=== PATIENT | male | born 1955 | race Caucasian/White ===

== ENCOUNTER → 2020-03-20 15:44 | Outpatient (BNVA) | payer MEDICARE, MEDICAID, SELFPAY | PROVIDERS: Family Provider Internal Medicine; PCP Internal Medicine; Referring Provider Internal Medicine; Visit Provider Dermatology | DX: L13.9 Bullous disorder, unspecified (principal); B35.3 Tinea pedis; L30.8 Other specified dermatitis | CPT/HCPCS: 99202; 99203 ==

== ENCOUNTER → 2020-04-03 14:03 | Outpatient (BNVA) | payer MEDICARE, MEDICAID, SELFPAY | PROVIDERS: Family Provider Internal Medicine; PCP Internal Medicine; Visit Provider Dermatology | DX: B35.3 Tinea pedis (principal); L13.9 Bullous disorder, unspecified | CPT/HCPCS: 11104; 11105; 87070; 87077; 87186; 88304; 88305; 88312; 88346; 88350; 99213 ==

== ENCOUNTER → 2020-04-17 14:56 | Outpatient (BNVA) | payer MEDICARE, MEDICAID, SELFPAY | PROVIDERS: Family Provider Internal Medicine; PCP Internal Medicine; Visit Provider Dermatology | DX: L13.9 Bullous disorder, unspecified (principal); L82.1 Other seborrheic keratosis; B35.3 Tinea pedis; L25.5 Unspecified contact dermatitis due to plants, except food | CPT/HCPCS: 99213 ==

== ENCOUNTER → 2020-05-16 13:32 | Outpatient (BNVA) | payer MEDICARE, MEDICAID, SELFPAY | PROVIDERS: Family Provider Internal Medicine; PCP Internal Medicine; Visit Provider Dermatology | DX: L13.9 Bullous disorder, unspecified (principal); R60.0 Localized edema | CPT/HCPCS: 99213 ==

== ENCOUNTER 2020-06-12 12:34 | Outpatient (CLI) | payer MEDICARE, MEDICAID, SELFPAY ==
--- NOTE | 2020-06-12 12:45 | US_ITS ---
WS: [id number] RENAL ULTRASOUND HISTORY: neurogenic bladder COMPARISON: 05/26/2017 and 01/08/2015 TECHNIQUE: 2-D and color Doppler imaging of the kidney submitted. Right kidney: 8.4 cm x 4.4 cm x 4.4 cm. RIGHT kidney is poorly visualized. Marked atrophy of the superior renal pole. There is a large comple x cyst associated with the mid and lower kidney measuring 5.0 x 4.7 x 4.1 cm. This cyst has been prev iously described and is not as well visualized today. No hydronephrosis is evident. Increased echogen icity throughout the visualized normal parenchyma. Left kidney: 9.1 cm x 5.2 cm x 4.7 cm. Mild diffuse increased echogenicity. No hydronephrosis. Cortical cyst upper pole measures 2.4 x 3.0 x 2.5 cm. Aorta: Poorly visualized aorta. Urinary Bladder: Nondistended urinary bladder. Prostate gland is enlarged. There is mild bladder wall thickening which may be due to underdistention or outlet obstruction. US/US renal BI* [id number] IMPRESSION: 1. Large mildly complex RIGHT renal cyst is been present on multiple prior exa ms. 2. No hydronephrosis. 3. Moderate to severe RIGHT renal atrophy. 4. Chronic medical renal disease.
== END 2020-06-12 12:35 | disposition home or self-care (01) ==
LOC: US 12:35
PROVIDERS: PCP Internal Medicine; Visit Provider Urology
DX: N31.9 Neuromuscular dysfunction of bladder, unspecified (principal); N28.1 Cyst of kidney, acquired; N26.1 Atrophy of kidney (terminal); N18.9 Chronic kidney disease, unspecified
CPT/HCPCS: 76770

== ENCOUNTER 2020-12-31 06:00 | Outpatient (RCR) | payer MEDICARE, MEDICAID, SELFPAY | END 2021-01-27 23:59 | disposition home or self-care (01) | LOC: AOT 06:00 | PROVIDERS: PCP Internal Medicine; Referring Provider Internal Medicine; Visit Provider Internal Medicine | DX: Z46.89 Encounter for fitting and adjustment of other specified devices (principal); G61.0 Guillain-Barre syndrome | CPT/HCPCS: 97166; 97530 ==

== ENCOUNTER 2021-07-01 13:55 | Outpatient (CLI) | payer MEDICARE, MEDICAID, SELFPAY ==
--- NOTE | 2021-07-01 13:30 | US_ITS ---
WS: [id number] ULTRASOUND RENAL TECHNIQUE: Ultrasound examination of both kidneys. CLINICAL INFORMATION: NEUROGENIC BLADDER COMPARISON: June 12, 2020 ultrasound FINDINGS: RIGHT: Complex mid right renal cyst measuring 5.7 x 4.5 x 5.4 cm is stable. Right kidney is normal in size and appearance. Echogenicity: Normal. Cortical thickness: 0.7 cm; Normal. Hydronephrosis: None. Perinephric fluid: None. Right kidney measures: 9.0 cm x 5.8 cm x 4.6 cm. LEFT: Simple left upper pole renal cyst measuring 2.7 x 3.0 x 2.6 cm is stable. Left kidney is normal in size and appearance. Echogenicity: Normal. Cortical thickness: 1.0 cm; Normal. Hydronephrosis: None. Perinephric fluid: None. Left kidney measures: 10.0 cm x 5.1 cm x 4.0 cm. Normal visualized aorta. Bladder is decompressed. US/US renal BI* [id number] IMPRESSION: Technically difficult examination performed culture 1. No hydronephrosis in either kidney. 2. Stable bilateral renal cysts described above. 3. Bladder is decompressed.
--- NOTE | 2021-07-01 14:15 | XRR_ITS ---
PROCEDURE INFORMATION: Exam: XR Abdomen Exam date and time: 07/01/2021 2:15 PM Age: 65 years old Clinical indication: Condition or disease; Other: Neurogenic bladder; Additional info: Neurogenic bladder, to be done with renal u/s TECHNIQUE: Imaging protocol: XR of the abdomen. Views: Frontal supine view of the abdomen. 1 View. Total images: 2 COMPARISON: CR XR KUB [id number] 06/28/2018 12:59 PM FINDINGS: Gastrointestinal tract: Bowel gas pattern is nondistended and nonobstructive. Vasculature: Incidental phleboliths noted. Bones/joints: Severe degenerative changes of the right hip. There are moderate to severe degenerative changes in the left hip joint. Osseous structures are unchanged from the prior exam. Spinal degenerative changes are evident. Other findings: Moderate stool burden. XR/XR KUB [id number] IMPRESSION: 1. Normal bowel gas pattern 2. Moderate stool burden. Radiation Dose CTDIVOL = (mGy): DLP = (mGy-cm)
== END 2021-07-01 13:56 | disposition home or self-care (01) ==
LOC: RAD 13:57
PROVIDERS: PCP Internal Medicine; Visit Provider Urology
DX: N31.9 Neuromuscular dysfunction of bladder, unspecified (principal); Q61.02 Congenital multiple renal cysts
CPT/HCPCS: 74018; 76770

== ENCOUNTER → 2021-11-27 13:18 | Outpatient (BNVA) | payer MEDICARE, MEDICAID, SELFPAY | PROVIDERS: PCP Internal Medicine; Visit Provider Nurse Practitioner Family | DX: I96 Gangrene, not elsewhere classified (principal); L89.893 Pressure ulcer of other site, stage 3 | CPT/HCPCS: 11042; 87070; 87106; 87176; 87205; 99203; 99213 ==

== ENCOUNTER → 2021-12-11 13:59 | Outpatient (BNVA) | payer MEDICARE, MEDICAID, SELFPAY | PROVIDERS: PCP Internal Medicine; Visit Provider Nurse Practitioner Family | DX: I96 Gangrene, not elsewhere classified (principal); L89.893 Pressure ulcer of other site, stage 3 | CPT/HCPCS: 11042; 11045 ==

== ENCOUNTER → 2021-12-18 13:51 | Outpatient (BNVA) | payer MEDICARE, MEDICAID, SELFPAY | PROVIDERS: PCP Internal Medicine; Visit Provider Nurse Practitioner Family | DX: I96 Gangrene, not elsewhere classified (principal); L89.893 Pressure ulcer of other site, stage 3 | CPT/HCPCS: 11042; 11045; A6220 ==

== ENCOUNTER → 2022-01-01 13:06 | Outpatient (BNVA) | payer MEDICARE, MEDICAID, SELFPAY | PROVIDERS: PCP Internal Medicine; Visit Provider Nurse Practitioner Family | DX: I96 Gangrene, not elsewhere classified (principal); L89.893 Pressure ulcer of other site, stage 3 | CPT/HCPCS: 11042; 97605; A6237; A6250 ==

== ENCOUNTER → 2022-01-08 13:10 | Outpatient (BNVA) | payer MEDICARE, MEDICAID, SELFPAY | PROVIDERS: PCP Internal Medicine; Visit Provider Nurse Practitioner Family | DX: I96 Gangrene, not elsewhere classified (principal); L89.893 Pressure ulcer of other site, stage 3 | CPT/HCPCS: 11042; A6212; A6237; A6250 ==

== ENCOUNTER → 2022-01-15 13:07 | Outpatient (BNVA) | payer MEDICARE, MEDICAID, SELFPAY | PROVIDERS: PCP Internal Medicine; Visit Provider Nurse Practitioner Family | DX: I96 Gangrene, not elsewhere classified (principal); L89.893 Pressure ulcer of other site, stage 3 | CPT/HCPCS: 11042 ==

== ENCOUNTER → 2022-01-22 13:06 | Outpatient (BNVA) | payer MEDICARE, MEDICAID, SELFPAY | PROVIDERS: PCP Internal Medicine; Visit Provider Nurse Practitioner Family | DX: I96 Gangrene, not elsewhere classified (principal); L89.893 Pressure ulcer of other site, stage 3 | CPT/HCPCS: 11042 ==

== ENCOUNTER → 2022-02-05 13:05 | Outpatient (BNVA) | payer MEDICARE, MEDICAID, SELFPAY | PROVIDERS: PCP Internal Medicine; Visit Provider Nurse Practitioner Family | DX: I96 Gangrene, not elsewhere classified (principal); L89.893 Pressure ulcer of other site, stage 3 | CPT/HCPCS: 11042 ==

== ENCOUNTER → 2022-02-19 13:17 | Outpatient (BNVA) | payer MEDICARE, MEDICAID, SELFPAY | PROVIDERS: PCP Internal Medicine; Visit Provider Nurse Practitioner Family | DX: I96 Gangrene, not elsewhere classified (principal); L89.893 Pressure ulcer of other site, stage 3; L89.890 Pressure ulcer of other site, unstageable; L89.312 Pressure ulcer of right buttock, stage 2 | CPT/HCPCS: 11042; 97605; A6021; A6213 ==

== ENCOUNTER → 2022-03-12 13:07 | Outpatient (BNVA) | payer MEDICARE, MEDICAID, SELFPAY | PROVIDERS: PCP Internal Medicine; Visit Provider Nurse Practitioner Family | DX: I96 Gangrene, not elsewhere classified (principal); L89.893 Pressure ulcer of other site, stage 3; L89.890 Pressure ulcer of other site, unstageable; L89.312 Pressure ulcer of right buttock, stage 2 | CPT/HCPCS: 11042; 11045; A6212 ==

== ENCOUNTER → 2022-03-19 13:51 | Outpatient (BNVA) | payer MEDICARE, MEDICAID, SELFPAY | PROVIDERS: PCP Internal Medicine; Visit Provider Nurse Practitioner Family | DX: I96 Gangrene, not elsewhere classified (principal); L89.893 Pressure ulcer of other site, stage 3; L89.890 Pressure ulcer of other site, unstageable; L89.312 Pressure ulcer of right buttock, stage 2 | CPT/HCPCS: 11042; A6219 ==

== ENCOUNTER → 2022-04-02 13:38 | Outpatient (BNVA) | payer MEDICARE, MEDICAID, SELFPAY | PROVIDERS: PCP Internal Medicine; Visit Provider Nurse Practitioner Family | DX: I96 Gangrene, not elsewhere classified (principal); L89.893 Pressure ulcer of other site, stage 3; L89.890 Pressure ulcer of other site, unstageable; L89.312 Pressure ulcer of right buttock, stage 2; L89.322 Pressure ulcer of left buttock, stage 2 | CPT/HCPCS: 11042; 11045 ==

== ENCOUNTER 2022-04-10 16:21 | Emergency (ER) | payer MEDICARE, MEDICAID, SELFPAY ==
[2022-04-10 16:33] VITALS: BP 114/64; PULSE 82; RESP 20; TEMP 36.9; O2SAT 95; BMI 25.1
--- NOTE | 2022-04-10 17:25 | ED_ITS ---
HPI - Skin/Abscess/Foreign Bdy General: Chief complaint: Skin/Abscess/Foreign Body Stated complaint: sore on skin Time Seen by Provider: 04/10/22 17:07 History of Present Illness: Patient comes in with a wound in his right groin. States that he noticed an indurated region just below his scrotum between his perineum and right thigh. This morning as they were cleaning the area it opened and drained purulent fluid and blood. Associated symptoms: Deny fever(s), nausea or vomiting Review of Systems Const: Denies: fever(s) or body aches Eyes: Denies: change in vision or blurry vision ENMT: Denies: throat pain or odynophagia Card: Denies: chest pain or palpitations Resp: Denies: dyspnea or productive cough GI: Denies: abdominal pain, nausea or vomiting : Denies: flank pain or dysuria Musc: Denies: neck pain or back pain Skin/Breast: Reports: other (Wound in right groin); Denies: rash or pruritus Neuro: Denies: headache(s) or numbness in extremities Psych: Denies: anxiety or change in appetite Endo: Denies: polyuria or excessive sweating PFSH ED PFSH: Medical History Chronic pain disorder Guillain-[place] syndrome Neurogenic bladder Family History Mother , at age 72 Cancer Heart disease Father , at age 33 MVA (motor vehicle accident) Social History Smoking and tobacco status: former smoker Alcohol intake: never Lives independently: Yes Marital status: Current occupational status: disabled History of recent travel: No Physical Exam Const: COMMON NORMALS: no acute distress, patient oriented x3, healthy appearing and alert HENMT: COMMON NORMALS: normocephalic and atraumatic HEAD & SCALP: normocephalic and atraumatic Eye: COMMON NORMALS: Equal, round and reactive pupils present and EOMs intact bilaterally PUPIL: Yes Equal, round and reactive pupils present Neck/C-Spine: COMMON NORMALS: full ROM and supple Resp: COMMON NORMALS: normal respiratory effort, No retractions and No use of accessory muscles Cardio: COMMON NORMALS: regular rate and regular rhythm RATE: regular rate RHYTHM: regular rhythm GI: COMMON NORMALS: Normal to inspection, nondistended, normoactive bowel sounds present, Soft to palpation and non-tender PALPATION: Yes Soft to palpation Back/Pelvis: COMMON NORMALS: thoracic and lumbar spine normal to inspection and no thoracic nor lumbar tenderness Extremity: NARRATIVE EXTREMITY EXAM: Contractures of bilateral lower extremities Neuro: COMMON NORMALS: patient oriented x3 SENSORIUM/ORIENTATION: Yes alert Psych: COMMON NORMALS: mental status grossly normal and cooperative Skin: NARRATIVE SKIN EXAM: open wound in his right groin directly between his right thigh and right side of his scrotum. The wound is open. I am unable to express any purulent fluid at this time. He does have some surrounding erythema concerning for possible early cellulitis. Course Vital Signs: Vital signs: Vital Signs Temperature 98.5 F 04/10/22 16:33 Pulse Rate 82 04/10/22 16:33 Respiratory Rate 20 H 04/10/22 16:33 Blood Pressure 114/64 04/10/22 16:33 Pulse Oximetry 95 04/10/22 16:33 Oxygen Delivery Me thod 04/10/22 16:33 MDM - Skin/Abscess/Foreign Bdy Medicial Decision Making Patient comes in with a wound in his right groin. States that he noticed an indurated region just below his scrotum between his perineum and right thigh. This morning as they were cleaning the area it opened and drained purulent fluid and blood. On physical exam he has an open wound in his right groin directly between his right thigh and right side of his scrotum. The wound is open. I am unable to express any purulent fluid at this time. He does have some surrounding erythema concerning for possible early cellulitis. He is currently on cephalexin. I talked to them about wound care including keeping the wound clean and covered. We will add Bactrim to his current regimen and discharged with precautions return for worsening or changing symptoms. Discharge Plan Discharge Patient Disposition: Home Clinical Impression: Abscess of right thigh Condition: Stable Prescriptions: New Bactrim 400-80 mg tablet 1 tab PO BID 7 Days Qty: 14 0RF No Action ketoconazole 2 % cream 1 applic TOPICAL BID Qty: 60 3RF Rx Instructions: Apply twice daily to entire foot and between the toes for 6 weeks (DME) Mepilex 4 X 4 bandage See Rx Instructions .ROUTE .MEDSUPPLY Qty: 5 5RF Rx Instructions: Apply to open areas on feet daily prednisone 10 mg tablet 10 mg PO DAILY Qty: 60 0RF Rx Instructions: Take 5 tabs by mouth for 4 days, then 4 tabs x 4 days, 3 tabs x 4 days, 2 tabs x 4 days, then 1 tab x 4 days hydroxyzine HCl 25 mg tablet 25 mg PO TID PRN (Reason: itching) 7 Days Qty: 20 0RF d-mannose Powder PO ascorbic acid (vitamin C) 1,000 mg tablet 1 gm PO ONCE Rx Instructions: TAKE WITH METHENANINE black seed oil PO amoxicillin-pot clavulanate [Augmentin] 875-125 mg tablet 1 tab PO BID Qty: 20 0RF amoxicillin-pot clavulanate [Augmentin] 875-125 mg tablet 1 tab PO BID Qty: 30 0RF mupirocin 2 % ointment See Rx Instructions .ROUTE .COMPLEX Qty: 22 8RF Dose Instruction: APPLY TWICE DAILY TO OPEN AREAS ON LEGS AND FEET UNTIL HEALED Rx Instructions: APPLY TWICE DAILY TO OPEN AREAS ON LEGS AND FEET UNTIL HEALED diclofenac sodium 1 % gel See Rx Instructions .ROUTE .COMPLEX Qty: 100 6RF Dose Instruction: APPLY TWO GRAMS FOUR TIMES DAILY NEEDED FOR PAIN Rx Instructions: APPLY TWO GRAMS FOUR TIMES DAILY NEEDED FOR PAIN (DME) WHEELCHAIR REPAIRS See Rx Instructions .Route .MEDSUPPLY Qty: 1 0RF Rx Instructions: As directed (DME) wheelchair repair See Rx Instructions .Route .MEDSUPPLY Qty: 1 0RF Rx Instructions: As directed ([facility] [place]) wheel chair therapy assessment See Rx Instructions .Route .MEDSUPPLY Qty: 1 0RF Rx Instructions: As directed prednisone 10 mg tablet See Rx Instructions .Route .COMPLEX Qty: 1 0RF Rx Instructions: Begin at 40 mg daily and reduce by 10 every three days till gone Dispense QS; omeprazole 20 mg capsule,delayed release(DR/EC) 20 mg PO DAILY Qty: 30 5RF methenamine hippurate 1 gram tablet See Rx Instructions .ROUTE .COMPLEX Qty: 60 12RF Dose Instruction: TAKE ONE TABLET BY MOUTH TWICE DAILY WITH 1000 MG OF VITAMIN C WITH EACH DOSE Rx Instructions: TAKE ONE TABLET BY MOUTH TWICE DAILY WITH 1000 MG OF VITAMIN C WITH EACH DOSE miscellaneous medical supply Misc 1 ea miscellaneous DAILY Qty: 1 0RF Rx Instructions: patient requires repair/maintaince on his current wheelchair. oxycodone 15 mg tablet 15 mg PO Q4H PRN (Reason: pain) 30 Days Qty: 60 0RF oxycodone [OxyContin] 60 mg tablet,oral only,ext.rel.12 hr 60 mg PO .COMPLEX 30 Days Qty: 30 0RF Rx Instructions: 60 mg PO QHS; oxycodone [OxyContin] 80 mg tablet,oral only,ext.rel.12 hr 80 mg PO .COMPLEX 30 Days Qty: 180 0RF Rx Instructions: 80 mg PO 2 tabs TID; diazepam 10 mg tablet 10 mg PO QID PRN (Reason: anxiety) Qty: 120 3RF levofloxacin 500 mg tablet 500 mg PO DAILY Qty: 5 0RF oxycodone 15 mg tablet 15 mg PO Q4H PRN (Reason: pain) 30 Days Qty: 60 0RF oxycodone [OxyContin] 60 mg tablet,oral only,ext.rel.12 hr 60 mg PO .COMPLEX 30 Days Qty: 30 0RF Rx Instructions: 60 mg PO QHS; oxycodone [OxyContin] 80 mg tablet,oral only,ext.rel.12 hr 80 mg PO .COMPLEX 30 Days Qty: 180 0RF Rx Instructions: 80 mg PO 2 tabs TID; cephalexin 250 mg capsule See Rx Instructions .ROUTE .COMPLEX Qty: 60 2RF Dose Instruction: TAKE ONE CAPSULE BY MOUTH TWICE DAILY Rx Instructions: TAKE ONE CAPSULE BY MOUTH TWICE DAILY Discharge Orders: Discharge ED (Routine); Ordered 04/10/22 Ordered By: Koffi Thomas Referrals: Anand Cervantes MD [Primary Care Provider] - Coding Level of Care Code ED Promotions Officer for [facility]
== END 2022-04-10 17:47 | disposition home or self-care (01) ==
PROVIDERS: Emergency Provider Emergency Medicine; PCP Internal Medicine
DX: L02.415 Cutaneous abscess of right lower limb (principal); Z87.891 Personal history of nicotine dependence
CPT/HCPCS: 99283

== ENCOUNTER → 2022-04-16 13:16 | Outpatient (BNVA) | payer MEDICARE, MEDICAID, SELFPAY | PROVIDERS: PCP Internal Medicine; Visit Provider Nurse Practitioner Family | DX: I96 Gangrene, not elsewhere classified (principal); L89.893 Pressure ulcer of other site, stage 3; L89.890 Pressure ulcer of other site, unstageable; L89.322 Pressure ulcer of left buttock, stage 2; L89.152 Pressure ulcer of sacral region, stage 2 | CPT/HCPCS: 11042; 11045; A6257 ==

== ENCOUNTER → 2022-04-23 14:02 | Outpatient (BNVA) | payer MEDICARE, MEDICAID, SELFPAY | PROVIDERS: PCP Internal Medicine; Visit Provider Nurse Practitioner Family | DX: I96 Gangrene, not elsewhere classified (principal); L89.893 Pressure ulcer of other site, stage 3; L89.890 Pressure ulcer of other site, unstageable; L89.322 Pressure ulcer of left buttock, stage 2; L89.152 Pressure ulcer of sacral region, stage 2 | CPT/HCPCS: 11042; 11045; A6212 ×2 ==

== ENCOUNTER → 2022-05-07 13:19 | Outpatient (BNVA) | payer MEDICARE, MEDICAID, SELFPAY | PROVIDERS: PCP Internal Medicine; Visit Provider Nurse Practitioner Family | DX: L89.893 Pressure ulcer of other site, stage 3 (principal); L89.890 Pressure ulcer of other site, unstageable; L89.322 Pressure ulcer of left buttock, stage 2; L89.152 Pressure ulcer of sacral region, stage 2; I96 Gangrene, not elsewhere classified | CPT/HCPCS: 11042; 11045 ==

== ENCOUNTER → 2022-05-14 12:58 | Outpatient (BNVA) | payer MEDICARE, MEDICAID, SELFPAY | PROVIDERS: PCP Internal Medicine; Visit Provider Nurse Practitioner Family | DX: I96 Gangrene, not elsewhere classified (principal); L89.893 Pressure ulcer of other site, stage 3; L89.890 Pressure ulcer of other site, unstageable; L89.322 Pressure ulcer of left buttock, stage 2; L98.492 Non-pressure chronic ulcer of skin of other sites with fat layer exposed | CPT/HCPCS: 11042; 11045; A6212 ==

== ENCOUNTER → 2022-05-28 12:56 | Outpatient (BNVA) | payer MEDICARE, MEDICAID, SELFPAY | PROVIDERS: PCP Internal Medicine; Visit Provider Nurse Practitioner Family | DX: I96 Gangrene, not elsewhere classified (principal); L89.893 Pressure ulcer of other site, stage 3; L89.890 Pressure ulcer of other site, unstageable; L89.322 Pressure ulcer of left buttock, stage 2; L98.492 Non-pressure chronic ulcer of skin of other sites with fat layer exposed | CPT/HCPCS: 11042; 11045 ==

== ENCOUNTER → 2022-06-05 13:02 | Outpatient (BNVA) | payer MEDICARE, MEDICAID, SELFPAY | PROVIDERS: PCP Internal Medicine; Visit Provider Surgery | DX: L89.324 Pressure ulcer of left buttock, stage 4 (principal); I96 Gangrene, not elsewhere classified; L89.223 Pressure ulcer of left hip, stage 3; L89.214 Pressure ulcer of right hip, stage 4; L89.894 Pressure ulcer of other site, stage 4 | CPT/HCPCS: 11043; 11044; 11046 ==

== ENCOUNTER → 2022-06-12 14:08 | Outpatient (BNVA) | payer MEDICARE, MEDICAID, SELFPAY | PROVIDERS: PCP Internal Medicine; Visit Provider Surgery | DX: I96 Gangrene, not elsewhere classified (principal); L89.894 Pressure ulcer of other site, stage 4; L89.214 Pressure ulcer of right hip, stage 4; L89.314 Pressure ulcer of right buttock, stage 4; L89.223 Pressure ulcer of left hip, stage 3 | CPT/HCPCS: 11042; 11043; 11044; 11046; A6212 ×2 ==

== ENCOUNTER 2022-06-18 14:35 | Outpatient (CLI) | payer MEDICARE, MEDICAID, SELFPAY ==
--- NOTE | 2022-06-18 14:00 | CT_ITS ---
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 Coronal and sagittal reformat s are reviewed. All CT scans at [facility] use at least one of these dose optimization techni ques: automated exposure control; mA and/or kV adjustment per patient size (includes targeted exams w here dose is matched to clinical indication); or iterative reconstruction. Contrast: Omnipaque 350; 95 mL IV. DLP: 777.75 mGy.cm COMPARISON: None available. Bilateral posterior deep soft tissue ulcerations are noted in the pelvis. Both of these tracts extend to the ischial tuberosities. The tract extending to the RIGHT ischial tuberosity extends over a emy th of 9.3 cm with a width of 3.3 cm. There is soft tissue thickening and very mild enhancement but no focal abscess. The track extending to the LEFT ischial tuberosity measures 5.6 cm in length with a d iameter of 2.1 cm. Soft tissue thickening with mild enhancement but no focal abscess collection. Defo rmity at the ischial tuberosities. There is increased sclerosis involving the RIGHT ischial tuberosit y suggesting prior osteomyelitis with healing. No evidence for an acute destructive bone lesion or ly tic change. There is an additional soft tissue ulcer with a widemouth over the RIGHT greater trochanter. Mouth of this soft tissue ulcer measures 4.1 cm. No open tract. There is soft tissue extending to the greater trochanter over a length of 4.5 cm. There is no abscess identified. No fluid collection. No lytic ch anges within the greater trochanter. Additional soft tissue tract involving the posterior LEFT hip me asures 4.6 x 4.2 cm. Soft tissue thickening with mild enhancement. No fluid collection. No definite l ytic change or bone destruction. Deformity and narrowing of the hip joints bilaterally. Partial subluxation of the RIGHT hip. Vertical orientation of the RIGHT acetabulum. Bones are diffusely osteopenic. Incompletely visualized cystic masses associated with the lower pole RIGHT kidney. Atherosclerosis aorta. Dystrophic calcifications in the soft tissues of the posterior RIGHT pelvis. CT/CT pelvis w con* [id number] IMPRESSION: 1. Bilateral decubitus ulcers in the posterior pelvis extending to the ischial tuberosities. No focal abscess. Since 2013 the LEFT decubitus ulcer is new. Th e RIGHT decubitus ulcer is more prominent in size. 2. Sclerotic changes involving the ischial tuberosities. No lytic area. No act kuldeep destruction identified. 3. Bilateral soft tissue ulcerations involving the hips, RIGHT ulceration trac t of the greater trochanter in the LEFT ulceration tract of the posterior hip. No abscess. No active bone destruction. 4. Partial subluxation RIGHT hip. Similar to the prior study from 2013.
[2022-06-18] MEDS: iohexol 350 mg/mL 100 mL Btl IV (15:31)
[2022-06-18 17:18] LABS: Blood Urea Nitrogen 13 mg/dL (8-23)
== END 2022-06-18 14:36 | disposition home or self-care (01) ==
LOC: RAD 14:36
PROVIDERS: PCP Internal Medicine; Visit Provider Surgery
DX: L89.324 Pressure ulcer of left buttock, stage 4 (principal); L89.224 Pressure ulcer of left hip, stage 4; L89.214 Pressure ulcer of right hip, stage 4; S73.001A Unspecified subluxation of right hip, initial encounter; X58.XXXA Exposure to other specified factors, initial encounter
CPT/HCPCS: 72193; 82565; 84520

== ENCOUNTER → 2022-06-26 13:30 | Outpatient (BNVA) | payer MEDICARE, MEDICAID, SELFPAY | PROVIDERS: PCP Internal Medicine; Visit Provider Surgery | DX: I96 Gangrene, not elsewhere classified (principal); L89.214 Pressure ulcer of right hip, stage 4; L89.223 Pressure ulcer of left hip, stage 3; L89.324 Pressure ulcer of left buttock, stage 4 | CPT/HCPCS: 11042; 11043; A6212 ==

== ENCOUNTER 2022-07-13 13:39 | Outpatient (CLI) | payer MEDICARE, MEDICAID, SELFPAY ==
--- NOTE | 2022-07-13 13:49 | XR_ITS ---
WS: [id number] Exam: XR KUB [id number] Date/Time of Exam: 07/13/2022 1:49 PM Reason For Exam: Neurogenic Bladder. Comparison 07/01/2021. No bowel obstruction or free air. Moderate amount retained stool in the colon. No sign of organ enlar gement. Severe degenerative change of the right hip with [id number] articulation and partial latera l subluxation of the femoral head. Large soft tissue ossification seen along the medial aspect of the right femoral neck. Levoscoliosis of the lumbar spine. XR/XR KUB [id number] IMPRESSION: 1. No acute abdominal process. 2. Moderate stool retention throughout the colon. 3. Chronic right hip changes as detailed above.
== END 2022-07-13 13:40 | disposition home or self-care (01) ==
PROVIDERS: PCP Internal Medicine; Visit Provider Urology
DX: N31.9 Neuromuscular dysfunction of bladder, unspecified (principal); Z97.8 Presence of other specified devices; N39.0 Urinary tract infection, site not specified
CPT/HCPCS: 52000; 74018; 99213

== ENCOUNTER → 2022-07-17 13:57 | Outpatient (BNVA) | payer MEDICARE, MEDICAID, SELFPAY | PROVIDERS: PCP Internal Medicine; Visit Provider Surgery | DX: I96 Gangrene, not elsewhere classified (principal); L89.223 Pressure ulcer of left hip, stage 3; L89.214 Pressure ulcer of right hip, stage 4; L89.324 Pressure ulcer of left buttock, stage 4; L89.894 Pressure ulcer of other site, stage 4 | CPT/HCPCS: 11042; 11043; A6212 ×2 ==

== ENCOUNTER → 2022-07-31 13:05 | Outpatient (BNVA) | payer MEDICARE, MEDICAID, SELFPAY | PROVIDERS: PCP Internal Medicine; Visit Provider Surgery | DX: I96 Gangrene, not elsewhere classified (principal); L89.223 Pressure ulcer of left hip, stage 3; L89.214 Pressure ulcer of right hip, stage 4; L89.324 Pressure ulcer of left buttock, stage 4; L89.894 Pressure ulcer of other site, stage 4 | CPT/HCPCS: 11043; 11046; A6021; A6212 ==

== ENCOUNTER → 2022-08-14 12:05 | Outpatient (BNVA) | payer MEDICARE, MEDICAID, SELFPAY | PROVIDERS: PCP Internal Medicine; Visit Provider Surgery | DX: I96 Gangrene, not elsewhere classified (principal); L89.223 Pressure ulcer of left hip, stage 3 | CPT/HCPCS: 11042; 11044; A6021 ==

== ENCOUNTER → 2022-09-04 13:11 | Outpatient (BNVA) | payer MEDICARE, MEDICAID, SELFPAY | PROVIDERS: PCP Internal Medicine; Visit Provider Thoracic Surgery (Cardiothoracic Vascular Surgery) | DX: I96 Gangrene, not elsewhere classified (principal); L89.214 Pressure ulcer of right hip, stage 4; L89.314 Pressure ulcer of right buttock, stage 4; L89.894 Pressure ulcer of other site, stage 4; L89.223 Pressure ulcer of left hip, stage 3 | CPT/HCPCS: 11042; A6021; A6212 ×2 ==

== ENCOUNTER → 2022-10-09 13:50 | Outpatient (BNVA) | payer MEDICARE, MEDICAID, SELFPAY | PROVIDERS: PCP Internal Medicine; Visit Provider Thoracic Surgery (Cardiothoracic Vascular Surgery) | DX: I96 Gangrene, not elsewhere classified (principal); L89.214 Pressure ulcer of right hip, stage 4; L89.324 Pressure ulcer of left buttock, stage 4; L89.894 Pressure ulcer of other site, stage 4; Z09 Encounter for follow-up examination after completed treatment for conditions other than malignant neoplasm | CPT/HCPCS: 11042; A6021; A6212 ×2 ==

== ENCOUNTER → 2022-11-06 13:33 | Outpatient (BNVA) | payer MEDICARE, MEDICAID, SELFPAY | PROVIDERS: PCP Internal Medicine; Visit Provider Thoracic Surgery (Cardiothoracic Vascular Surgery) | DX: I96 Gangrene, not elsewhere classified (principal); L89.214 Pressure ulcer of right hip, stage 4; L89.324 Pressure ulcer of left buttock, stage 4; L89.154 Pressure ulcer of sacral region, stage 4 | CPT/HCPCS: 11042; A6021; A6212 ==

== ENCOUNTER → 2022-11-27 13:32 | Outpatient (BNVA) | payer MEDICARE, MEDICAID, SELFPAY | PROVIDERS: PCP Internal Medicine; Visit Provider Thoracic Surgery (Cardiothoracic Vascular Surgery) | DX: I96 Gangrene, not elsewhere classified (principal); L89.214 Pressure ulcer of right hip, stage 4; L89.324 Pressure ulcer of left buttock, stage 4; L89.894 Pressure ulcer of other site, stage 4 | CPT/HCPCS: 11042; A6021; A6212 ×2 ==

== ENCOUNTER → 2022-12-25 13:46 | Outpatient (BNVA) | payer MEDICARE, MEDICAID, SELFPAY | PROVIDERS: PCP Internal Medicine; Visit Provider Thoracic Surgery (Cardiothoracic Vascular Surgery) | DX: I96 Gangrene, not elsewhere classified (principal); L89.214 Pressure ulcer of right hip, stage 4; L89.324 Pressure ulcer of left buttock, stage 4; L89.154 Pressure ulcer of sacral region, stage 4 | CPT/HCPCS: 11042; 97597; A6021; A6212 ×2 ==

== ENCOUNTER → 2023-01-22 14:05 | Outpatient (BNVA) | payer MEDICARE, MEDICAID, SELFPAY | PROVIDERS: PCP Internal Medicine; Visit Provider Thoracic Surgery (Cardiothoracic Vascular Surgery) | DX: I96 Gangrene, not elsewhere classified (principal); L89.214 Pressure ulcer of right hip, stage 4; L89.324 Pressure ulcer of left buttock, stage 4; L89.154 Pressure ulcer of sacral region, stage 4 | CPT/HCPCS: 11042; 97597; A6021; A6212 ×2 ==

== ENCOUNTER → 2023-02-19 13:45 | Outpatient (BNVA) | payer MEDICARE, MEDICAID, SELFPAY | PROVIDERS: PCP Internal Medicine; Visit Provider Thoracic Surgery (Cardiothoracic Vascular Surgery) | DX: I96 Gangrene, not elsewhere classified (principal); L89.214 Pressure ulcer of right hip, stage 4; L89.324 Pressure ulcer of left buttock, stage 4; L89.894 Pressure ulcer of other site, stage 4 | CPT/HCPCS: 11042; 97597; A6021; A6212 ×2 ==

== ENCOUNTER → 2023-03-26 13:19 | Outpatient (BNVA) | payer MEDICARE, MEDICAID, SELFPAY | PROVIDERS: PCP Internal Medicine; Visit Provider Thoracic Surgery (Cardiothoracic Vascular Surgery) | DX: I96 Gangrene, not elsewhere classified (principal); L89.214 Pressure ulcer of right hip, stage 4; L89.324 Pressure ulcer of left buttock, stage 4; L89.154 Pressure ulcer of sacral region, stage 4 | CPT/HCPCS: 11042; 97597; A6021; A6212 ×2 ==